=== PATIENT | female | born 2000 | race Caucasian/White ===

== ENCOUNTER 2018-08-13 00:37 | Inpatient (IN) | payer BC ==
[2018-08-13] MEDS ORDERED: Nalbuphine 10 MG/1 ML Vial IVPUSH PRN (02:02)
[2018-08-13] MEDS ORDERED: Tranexamic Acid 1,000 MG in Sodium Chloride 0.9% 100 ML IV PRN (02:02)
[2018-08-13] MEDS ORDERED: Methylergonovine 0.2 MG/1 ML Amp IM PRN (02:02)
[2018-08-13] MEDS ORDERED: Ampicillin 2 GM in Sodium Chloride 0.9% 100 ML IV ONE (02:02)
[2018-08-13] MEDS ORDERED: Water For Irrigation,Sterile 1,000 ML Container IRR PRN (02:02)
[2018-08-13] MEDS ORDERED: Sodium Chloride 0.9% 10 ML Syringe FLUSH PRN (02:02)
[2018-08-13] MEDS ORDERED: Lidocaine 1% 50 ML MDV INJECT PRN (02:02)
[2018-08-13] MEDS ORDERED: Misoprostol 200 MCG Tab PO PRN (02:02)
[2018-08-13] MEDS ORDERED: Carboprost Tromethamine 250 MCG/1 ML Amp IM PRN (02:02)
[2018-08-13] MEDS ORDERED: Sodium Chloride 0.9% 2.5 ML Syringe FLUSH PRN (02:02)
[2018-08-13] MEDS ORDERED: Oxytocin/0.9 % Sodium Chloride 30 UNIT/500 ML BAG IV SCH ×2 (02:15→11:30)
[2018-08-13] MEDS: Lactated Ringers 1,000 ML IV SCH ×3 (02:34→14:16)
[2018-08-13] MEDS: Butorphanol 1 MG/ML SDV IVPUSH PRN ×2 (05:15→07:39)
--- NOTE | 2018-08-13 05:39 | PCM.PREANE ---
Preanesthetic Assessment - Anesthesia/Transfusion/Family Hx Anesthesia History: Prior Anesthesia Without Reaction Family History of Anesthesia Reaction: No - Review of Systems General: No Symptoms Pulmonary: No Symptoms Cardiovascular: No Symptoms Gastrointestinal: No Symptoms Neurological: No Symptoms Other: Reports: None - Physical Assessment Height: 1.68 m Weight: 89.811 kg ASA Class: 1 Mental Status: Alert & Oriented x3 Dentition: Reports: Normal Dentition ROM/Head Extension: Full - Lab Values: Laboratory Last Values WBC 11.95 K/uL (4.0-11.0) H 08/13/18 02:21 RBC 4.17 M/uL (4.30-5.90) L 08/13/18 02:21 Hgb 12.6 g/dL (12.0-16.0) 08/13/18 02:21 Hct 36.2 % (36.0-46.0) 08/13/18 02:21 MCV 86.8 fL (80.0-98.0) 08/13/18 02:21 MCH 30.2 pg (27.0-32.0) 08/13/18 02:21 MCHC 34.8 g/dL (31.0-37.0) 08/13/18 02:21 RDW Std Deviation 40.7 fl (28.0-62.0) 08/13/18 02:21 RDW Coeff of Yennifer 13 % (11.0-15.0) 08/13/18 02:21 Plt Count 198 K/uL (150-400) 08/13/18 02:21 MPV 10.80 fL (7.40-12.00) 08/13/18 02:21 Nucleated RBC % 0.0 /100WBC 08/13/18 02:21 Nucleated RBCs # 0 K/uL 08/13/18 02:21 Membrane Rupture POSITIVE 08/13/18 01:00 Blood Type O POSITIVE 08/13/18 02:21 Antibody Screen NEGATIVE 08/13/18 02:21 - Allergies Allergies/Adverse Reactions: Allergies Allergy/AdvReac Type Severity Reaction Status Date / Time No Known Allergies Allergy Verified 08/13/18 01:11 - Acknowledgements Anesthesia Type Planned: Epidural Pt an Appropriate Candidate for the Planned Anesthesia: Yes Alternatives and Risks of Anesthesia Discussed w Pt/Guardian: Yes Pt/Guardian Understands and Agrees with Anesthesia Plan: Yes PreAnesthesia Questionnaire - Past Health History Medical/Surgical History: Denies Medical/Surgical History HR CLERK History: Reports: - Past Surgical History HEENT Surgical History: Reports: Oral Surgery Other HEENT Surgeries/Procedures: [place] teeth removed - SUBSTANCE USE Smoking Status *Q: Former Smoker Tobacco Use Within Last Twelve Months: No Second Hand Smoke Exposure: No Recreational Drug Use History: No - CURRENT (IN HOUSE) MEDS Current Meds: Current Medications Butorphanol Tartrate (Stadol) 1 mg IVPUSH Q1H PRN PRN Reason: Pain Last Admin: 08/13/18 05:15 Dose: 1 mg Carboprost Tromethamine (Hemabate Ds) 250 mcg IM ASDIRECTED PRN PRN Reason: Post Hemorrhage Tranexamic Acid 1,000 mg/ (Sodium Chloride) 110 mls @ 660 mls/hr IV ONETIME PRN PRN Reason: Bleeding Lactated Ringer's (Ringers, Lactated) 1,000 mls @ 150 mls/hr IV ASDIRECTED [facility] Last Admin: 08/13/18 02:34 Dose: 150 mls/hr Oxytocin/Sodium Chloride (Oxytocin 30 Unit/500 Ml-Ns) 30 unit in 500 mls @ 500 mls/hr IV TITRATE [facility] Ampicillin Sodium 1 gm/ Sodium (Chloride) 50 mls @ 100 mls/hr IV Q4H [facility] Lidocaine HCl (Xylocaine 1%) 50 ml INJECT ONETIME PRN PRN Reason: Laceration repair Methylergonovine Maleate (Methergine) 0.2 mg IM ASDIRECTED PRN PRN Reason: Post Hemorrhage Misoprostol (Cytotec) 200 mcg PO ONETIME PRN PRN Reason: Post Hemorrhage Nalbuphine HCl (Nubain) 10 mg IVPUSH Q1H PRN PRN Reason: Pain (severe 7-10) Sodium Chloride (Saline Flush) 10 ml FLUSH ASDIRECTED PRN PRN Reason: Keep Vein Open Sodium Chloride (Saline Flush) 2.5 ml FLUSH ASDIRECTED PRN PRN Reason: Keep Vein Open Sterile Water (Sterile Water For Irrigation) 1,000 ml IRR ASDIRECTED PRN PRN Reason: delivery Discontinued Medications Ampicillin Sodium 2 gm/ Sodium (Chloride) 100 mls @ 200 mls/hr IV ONETIME ONE Stop: 08/13/18 02:31 Last Admin: 08/13/18 02:34 Dose: 200 mls/hr
[2018-08-13] MEDS: Ampicillin 1 GM in Sodium Chloride 0.9% 50 ML IV SCH ×4 (06:13→18:30)
[2018-08-13] MEDS ORDERED: fentaNYL 100 MCG/2 ML SDV ONE ×2 (09:49→16:41)
[2018-08-13] MEDS ORDERED: ePHEDrine 50 MG/ML SDV ONE (10:29)
[2018-08-13] MEDS ORDERED: Terbutaline 1 MG/ML SDV SUBCUT PRN (11:30)
[2018-08-13] MEDS ORDERED: Ondansetron 4 MG/2 ML SDV IVPUSH PRN ×2 (11:34→19:46)
[2018-08-13] MEDS ORDERED: Ropivacaine HCl/PF 100 ML ONE (16:41)
[2018-08-13] MEDS ORDERED: Witch Hazel Medicated Pads 40/Jar TOP PRN (19:46)
[2018-08-13] MEDS ORDERED: oxyCODONE 5 MG Tab PO PRN (19:46)
[2018-08-13] MEDS ORDERED: Benzocaine/Menthol 20%-0.5% Spray 78 GM Cannister TOP PRN (19:46)
[2018-08-13] MEDS ORDERED: Aluminum Hydroxide/Magnesium Hydroxide/Simethicone Susp 30 ML Cup PO PRN (19:46)
[2018-08-13] MEDS ORDERED: Ibuprofen 400 MG Tab PO PRN (19:46)
[2018-08-13] MEDS ORDERED: Acetaminophen 500 MG Tab PO PRN ×2 (19:46)
[2018-08-13] MEDS ORDERED: Bisacodyl 10 MG Supp RECTAL PRN (19:46)
[2018-08-13] MEDS ORDERED: Docusate Sodium 100 MG Cap PO PRN (19:46)
[2018-08-13] MEDS ORDERED: Lanolin 100% Cream 7 GM Tube TOP PRN (19:46)
--- NOTE | 2018-08-13 20:05 | PCM.DEL ---
L & D Note - General Info Date of Service: 08/13/18 Mother's Due Date: 08/21/18 - Delivery Note Labor: Spontaneous, Augmented by Oxytocin Delivery Outcome: Livebirth Presentation: Occiput Posterior Nuchal Cord: None Anesthesia Type: Epidural Amniotic Fluid Description: Meconium Stained Episiotomy Type: None Laceration: 1st Degree, Perineal Suture type: Vicryl Suture size: 3-0 Placenta: Intact, Spontaneous Cord: 3 Vessels Resuscitation Needed: No : Bulb Syringe, Stimulated, Warmed Score 1 min: 9 Score 5 min: 9 - General Info Date of Service: 08/13/18 - Patient Data Weight - Most Recent: 89.811 kg Lab Results Last 24 Hours: Laboratory Results - last 24 hr 08/13/18 08/13/18 08/13/18 Range/Units 01:00 02:21 02:21 WBC 11.95 H (4.0-11.0) K/uL RBC 4.17 L (4.30-5.90) M/uL Hgb 12.6 (12.0-16.0) g/dL Hct 36.2 (36.0-46.0) % MCV 86.8 (80.0-98.0) fL MCH 30.2 (27.0-32.0) pg MCHC 34.8 (31.0-37.0) g/dL RDW Std Deviation 40.7 (28.0-62.0) fl RDW Coeff of Yennifer 13 (11.0-15.0) % Plt Count 198 (150-400) K/uL MPV 10.80 (7.40-12.00) fL Nucleated RBC % 0.0 /100WBC Nucleated RBCs # 0 K/uL Cord ABG pH (7.18-7.38) Cord ABG Base Excess (-10--2) Cord VBG pH (7.25-7.45) Cord VBG Base Excess (-10--2) Membrane Rupture POSITIVE Blood Type O POSITIVE Antibody Screen NEGATIVE 08/13/18 Range/Units 19:20 WBC (4.0-11.0) K/uL RBC (4.30-5.90) M/uL Hgb (12.0-16.0) g/dL Hct (36.0-46.0) % MCV (80.0-98.0) fL MCH (27.0-32.0) pg MCHC (31.0-37.0) g/dL RDW Std Deviation (28.0-62.0) fl RDW Coeff of Yennifer (11.0-15.0) % Plt Count (150-400) K/uL MPV (7.40-12.00) fL Nucleated RBC % /100WBC Nucleated RBCs # K/uL Cord ABG pH 7.160 L (7.18-7.38) Cord ABG Base Excess -7 (-10--2) Cord VBG pH 7.274 (7.25-7.45) Cord VBG Base Excess -6 (-10--2) Membrane Rupture Blood Type Antibody Screen Med Orders - Current: Current Medications Acetaminophen (Tylenol Extra Strength) 500 mg PO Q4H PRN PRN Reason: Pain Acetaminophen (Tylenol Extra Strength) 1,000 mg PO Q4H PRN PRN Reason: Pain Al Hydroxide/Mg Hydroxide (Mag-Al Plus) 30 ml PO Q8H PRN PRN Reason: Heartburn Benzocaine/Menthol (Dermoplast Pain Relief 20%-0.5% [place]) 78 gm TOP ASDIRECTED PRN PRN Reason: Perineal Comfort Measure Bisacodyl (Dulcolax) 10 mg RECTAL ONETIME PRN PRN Reason: Constipation Carboprost Tromethamine (Hemabate Ds) 250 mcg IM ASDIRECTED PRN PRN Reason: Post Hemorrhage Docusate Sodium (Colace) 100 mg PO BID PRN PRN Reason: Constipation Emollient Ointment (Lansinoh Hpa) 0 gm TOP ASDIRECTED PRN PRN Reason: Sore Nipples Tranexamic Acid 1,000 mg/ (Sodium Chloride) 110 mls @ 660 mls/hr IV ONETIME PRN PRN Reason: Bleeding Lactated Ringer's (Ringers, Lactated) 1,000 mls @ 150 mls/hr IV ASDIRECTED [facility] Last Admin: 08/13/18 14:16 Dose: 150 mls/hr Oxytocin/Sodium Chloride (Oxytocin 30 Unit/500 Ml-Ns) 30 unit in 500 mls @ 500 mls/hr IV TITRATE [facility] Oxytocin/Sodium Chloride (Oxytocin 30 Unit/500 Ml-Ns) 30 unit in 500 mls @ 2 mls/hr IV TITRATE [facility]; Protocol Last Titration: 08/13/18 18:55 Dose: 10 munits/min, 10 mls/hr Ibuprofen (Motrin) 400 mg PO Q4H PRN PRN Reason: Pain Ibuprofen (Motrin) 800 mg PO Q6H PRN PRN Reason: Pain Methylergonovine Maleate (Methergine) 0.2 mg IM ASDIRECTED PRN PRN Reason: Post Hemorrhage Ondansetron HCl (Zofran) 4 mg IVPUSH Q4H PRN PRN Reason: Nausea Last Admin: 08/13/18 18:36 Dose: 4 mg Ondansetron HCl (Zofran) 4 mg IVPUSH Q6H PRN PRN Reason: Nausea/Vomiting Oxycodone HCl (Oxycodone) 5 mg PO Q2H PRN PRN Reason: Pain Sodium Chloride (Saline Flush) 2.5 ml FLUSH ASDIRECTED PRN PRN Reason: Keep Vein Open Sterile Water (Sterile Water For Irrigation) 1,000 ml IRR ASDIRECTED PRN PRN Reason: delivery Witch Cammie (Tucks) 1 pad TOP ASDIRECTED PRN PRN Reason: comfort care Discontinued Medications Butorphanol Tartrate (Stadol) 1 mg IVPUSH Q1H PRN PRN Reason: Pain Last Admin: 08/13/18 07:39 Dose: 1 mg Ephedrine Sulfate (Ephedrine Sulfate) Confirm Administered Dose 50 mg .ROUTE .STK-MED ONE Stop: 08/13/18 10:30 Fentanyl (Sublimaze) Confirm Administered Dose 100 mcg .ROUTE .STK-MED ONE Stop: 08/13/18 09:50 Fentanyl (Sublimaze) Confirm Administered Dose 100 mcg .ROUTE .STK-MED ONE Stop: 08/13/18 16:42 Ampicillin Sodium 2 gm/ Sodium (Chloride) 100 mls @ 200 mls/hr IV ONETIME ONE Stop: 08/13/18 02:31 Last Admin: 08/13/18 02:34 Dose: 200 mls/hr Ampicillin Sodium 1 gm/ Sodium (Chloride) 50 mls @ 100 mls/hr IV Q4H [facility] Last Admin: 08/13/18 18:30 Dose: 100 mls/hr Fentanyl/Bupivacaine HCl (Oqiuqkfg-Hqlbh-Ei 2 Mcg/Ml-0.125%) Confirm Administered Dose 100 mls @ as directed EP .STK-MED ONE Stop: 08/13/18 09:51 Ropivacaine (Naropin 0.2%) Confirm Administered Dose 100 mls @ as directed .ROUTE .STK-MED ONE Stop: 08/13/18 16:42 Lidocaine HCl (Xylocaine 1%) 50 ml INJECT ONETIME PRN PRN Reason: Laceration repair Misoprostol (Cytotec) 200 mcg PO ONETIME PRN PRN Reason: Post Hemorrhage Nalbuphine HCl (Nubain) 10 mg IVPUSH Q1H PRN PRN Reason: Pain (severe 7-10) Sodium Chloride (Saline Flush) 10 ml FLUSH ASDIRECTED PRN PRN Reason: Keep Vein Open Terbutaline Sulfate (Brethine) 0.25 mg SUBCUT ASDIRECTED PRN PRN Reason: Tacysystole - Problem List & Annotations (1) Normal spontaneous vaginal delivery SNOMED Code(s): 82089526 Code(s): O80 - ENCOUNTER FOR FULL-TERM UNCOMPLICATED DELIVERY Status: Acute Current Visit: Yes - Problem List Review Problem List Initiated/Reviewed/Updated: Yes
[2018-08-14] MEDS: Ibuprofen 800 MG Tab PO PRN ×2 (03:30→18:36)
--- NOTE | 2018-08-14 08:00 | OR ---
SURGEON: Daniella Jasso M.D. DATE OF PROCEDURE: 08/13/2018 PRIMARY SURGEON: Daniella Jasso M.D. PREOPERATIVE DIAGNOSES: 1. 38-week 6 day intrauterine . 2. Active labor. POSTOPERATIVE DIAGNOSES: 1. 38-week 6 day intrauterine . 2. Active labor. PROCEDURES: Spontaneous vaginal delivery, repair of first-degree perineal laceration. FISH WORM GROWER: AMNA Chan. ANESTHESIA: Epidural. ESTIMATED BLOOD LOSS: 300 mL. COMPLICATIONS: None. FINDINGS: Viable female. score 9 at 1 minute and 9 at 5 minutes. Weight 3420 g. Spontaneous delivery, intact placenta, 3-vessel cord. DISPOSITION: The patient in LDRP and with mother. PROCEDURE IN DETAIL: Osiris Calvillo is a 18-year-old G1, P0, at 38 weeks and 6 days gestational age, who presented at 1:00 a.m. complaining of spontaneous rupture of membranes. She began leaking clear fluid at 2330 hours last night. Upon admission at 1:00 a.m. this morning, spontaneous rupture of membranes was confirmed with positive AmniSure. On admission, the cervical exam was 1 cm dilated, 30% effaced, -2 station. She was having contractions every 2 to 3 minutes. Ampicillin was initiated for group B strep positive status. She received 2 doses of Stadol for pain control and eventually requested an epidural. This was placed at 10:00 a.m. At 12:00, a cervical exam was 3 to 4 cm dilated, 90% effaced, -1 station. Pitocin was initiated at 2 milliunits per minute. She became more comfortable and shortly after 1:00 p.m., she was found to be 7 to 8 cm dilated, 90% effaced, 0 station. She continued to progress and shortly after 6:00 p.m., was found to be complete, 100% effaced, 1+ station. At that point, she had received 5 doses of ampicillin. heart tones had been category 1; however, shortly after exam at 6:00 p.m., baby became tachycardic to 180s. She began pushing and this improved. Mom remained afebrile and vital signs stable. I was called for delivery. Upon my arrival, the patient was placed in the modified dorsal lithotomy position and was prepped and draped in the usual aseptic manner. With continued pushing efforts, she was able to deliver 's head atraumatically and spontaneously, followed by anterior shoulder, posterior shoulder, and body without difficulty. Position was occiput posterior. The 's oropharynx and nares were bulb suctioned, cord was clamped x2 and cut. was handed off to her mother with attending nursing staff at her side. Cord arterial, cord venous, and cord blood sampling were obtained. Light suprapubic pressure was applied while the placenta was delivered spontaneously intact. Vigorous fundal massage was applied while 30 units of Pitocin was delivered in 500 mL of IV fluid. Upon inspection of cervix, vaginal sidewalls, and perineum, and a first- degree perineal laceration was found. This was repaired with 3-0 Vicryl in the usual fashion. Hemostasis was evident. Sponge count was correct. Needle count was correct. The patient remained in LDRP. Both mother and are doing well. Note reviewed and agree-S Romero IZQUIERDO / CYRIL /[id number] MTDFredy
--- NOTE | 2018-08-14 08:20 | PCM.PN ---
<gilbertoMarta oliva - Last Filed: 08/14/18 08:20> - General Info Date of Service: 08/14/18 Subjective Update: 18yo PPD#1 from . Feeling well this AM. baby, feels this is going well. Endorses perineal pain and uterine cramping. Lochia minimal. No nausea, tolerating diet. Urinating with no hesitancy. Ambulating without difficulty. Denies fevers, chills, dyspnea. - Review of Systems General: Reports: No Symptoms HEENT: Reports: No Symptoms Pulmonary: Reports: No Symptoms Cardiovascular: Reports: No Symptoms Gastrointestinal: Reports: No Symptoms Genitourinary: Reports: Other (Perineal pain, uterine cramping) Musculoskeletal: Reports: No Symptoms Skin: Reports: No Symptoms Neurological: Reports: No Symptoms Psychiatric: Reports: No Symptoms - Patient Data Vitals - Most Recent: Last Vital Signs Temp 98.2 F 08/14/18 04:23 Pulse 74 08/14/18 04:23 Resp 18 08/14/18 03:39 BP 111/69 08/14/18 03:39 Pulse Ox 98 08/14/18 03:39 Weight - Most Recent: 89.811 kg Lab Results Last 24 Hours: Laboratory Results - last 24 hr 08/13/18 08/14/18 Range/Units 19:20 04:49 Hgb 11.7 L (12.0-16.0) g/dL Hct 34.1 L (36.0-46.0) % Cord ABG pH 7.160 L (7.18-7.38) Cord ABG Base Excess -7 (-10--2) Cord VBG pH 7.274 (7.25-7.45) Cord VBG Base Excess -6 (-10--2) Med Orders - Current: Current Medications Acetaminophen (Tylenol Extra Strength) 500 mg PO Q4H PRN PRN Reason: Pain Acetaminophen (Tylenol Extra Strength) 1,000 mg PO Q4H PRN PRN Reason: Pain Last Admin: 08/14/18 08:05 Dose: 1,000 mg Al Hydroxide/Mg Hydroxide (Mag-Al Plus) 30 ml PO Q8H PRN PRN Reason: Heartburn Benzocaine/Menthol (Dermoplast Pain Relief 20%-0.5% [place]) 78 gm TOP ASDIRECTED PRN PRN Reason: Perineal Comfort Measure Last Admin: 08/13/18 22:34 Dose: 1 applic Bisacodyl (Dulcolax) 10 mg RECTAL ONETIME PRN PRN Reason: Constipation Carboprost Tromethamine (Hemabate Ds) 250 mcg IM ASDIRECTED PRN PRN Reason: Post Hemorrhage Docusate Sodium (Colace) 100 mg PO BID PRN PRN Reason: Constipation Emollient Ointment (Lansinoh Hpa) 0 gm TOP ASDIRECTED PRN PRN Reason: Sore Nipples Last Admin: 08/13/18 22:34 Dose: 1 applic Tranexamic Acid 1,000 mg/ (Sodium Chloride) 110 mls @ 660 mls/hr IV ONETIME PRN PRN Reason: Bleeding Lactated Ringer's (Ringers, Lactated) 1,000 mls @ 150 mls/hr IV ASDIRECTED [facility] Last Admin: 08/13/18 14:16 Dose: 150 mls/hr Oxytocin/Sodium Chloride (Oxytocin 30 Unit/500 Ml-Ns) 30 unit in 500 mls @ 500 mls/hr IV TITRATE [facility] Oxytocin/Sodium Chloride (Oxytocin 30 Unit/500 Ml-Ns) 30 unit in 500 mls @ 2 mls/hr IV TITRATE [facility]; Protocol Last Titration: 08/13/18 18:55 Dose: 10 munits/min, 10 mls/hr Ibuprofen (Motrin) 400 mg PO Q4H PRN PRN Reason: Pain Ibuprofen (Motrin) 800 mg PO Q6H PRN PRN Reason: Pain Last Admin: 08/14/18 03:30 Dose: 800 mg Methylergonovine Maleate (Methergine) 0.2 mg IM ASDIRECTED PRN PRN Reason: Post Hemorrhage Ondansetron HCl (Zofran) 4 mg IVPUSH Q4H PRN PRN Reason: Nausea Last Admin: 08/13/18 18:36 Dose: 4 mg Ondansetron HCl (Zofran) 4 mg IVPUSH Q6H PRN PRN Reason: Nausea/Vomiting Oxycodone HCl (Oxycodone) 5 mg PO Q2H PRN PRN Reason: Pain Sodium Chloride (Saline Flush) 2.5 ml FLUSH ASDIRECTED PRN PRN Reason: Keep Vein Open Sterile Water (Sterile Water For Irrigation) 1,000 ml IRR ASDIRECTED PRN PRN Reason: delivery Luana Bonds (Tucks) 1 pad TOP ASDIRECTED PRN PRN Reason: comfort care Last Admin: 08/13/18 22:33 Dose: 1 applic Discontinued Medications Butorphanol Tartrate (Stadol) 1 mg IVPUSH Q1H PRN PRN Reason: Pain Last Admin: 08/13/18 07:39 Dose: 1 mg Ephedrine Sulfate (Ephedrine Sulfate) Confirm Administered Dose 50 mg .ROUTE .STK-MED ONE Stop: 08/13/18 10:30 Fentanyl (Sublimaze) Confirm Administered Dose 100 mcg .ROUTE .STK-MED ONE Stop: 08/13/18 09:50 Fentanyl (Sublimaze) Confirm Administered Dose 100 mcg .ROUTE .STK-MED ONE Stop: 08/13/18 16:42 Ampicillin Sodium 2 gm/ Sodium (Chloride) 100 mls @ 200 mls/hr IV ONETIME ONE Stop: 08/13/18 02:31 Last Admin: 08/13/18 02:34 Dose: 200 mls/hr Ampicillin Sodium 1 gm/ Sodium (Chloride) 50 mls @ 100 mls/hr IV Q4H [facility] Last Admin: 08/13/18 18:30 Dose: 100 mls/hr Fentanyl/Bupivacaine HCl (Vhohgysx-Cwyjf-Ow 2 Mcg/Ml-0.125%) Confirm Administered Dose 100 mls @ as directed EP .STK-MED ONE Stop: 08/13/18 09:51 Ropivacaine (Naropin 0.2%) Confirm Administered Dose 100 mls @ as directed .ROUTE .STK-MED ONE Stop: 08/13/18 16:42 Lidocaine HCl (Xylocaine 1%) 50 ml INJECT ONETIME PRN PRN Reason: Laceration repair Misoprostol (Cytotec) 200 mcg PO ONETIME PRN PRN Reason: Post Hemorrhage Nalbuphine HCl (Nubain) 10 mg IVPUSH Q1H PRN PRN Reason: Pain (severe 7-10) Sodium Chloride (Saline Flush) 10 ml FLUSH ASDIRECTED PRN PRN Reason: Keep Vein Open Terbutaline Sulfate (Brethine) 0.25 mg SUBCUT ASDIRECTED PRN PRN Reason: Tacysystole - Exam General: Alert, Oriented Lungs: Clear to Auscultation, Normal Respiratory Effort Cardiovascular: Regular Rate, Regular Rhythm, No Murmurs GI/Abdominal Exam: Soft, Non-Tender (Female) Exam: No: Uterine Tenderness Extremities: Normal Inspection, Other (No calf tenderness) Peripheral Pulses: 2+: Posterior Tibial (L), Posterior Tibial (R), Dorsalis Pedis (L), Dorsalis Pedis (R) Skin: Warm, Dry Neurological: No New Focal Deficit Psy/Mental Status: Normal Affect, Normal Mood - Problem List & Annotations (1) Normal spontaneous vaginal delivery SNOMED Code(s): 81586849 Code(s): O80 - ENCOUNTER FOR FULL-TERM UNCOMPLICATED DELIVERY Status: Acute Current Visit: Yes - Problem List Review Problem List Initiated/Reviewed/Updated: Yes - Assessment Assessment:: 18yo who is PPD#1 from , repair of 1st degree perineal laceration. Clinically stable, VS and labs reassuring. - Plan Plan:: Continue routine cares. Encouraged ambulation. Anticipate discharge home later today. <Daniella Jasso - Last Filed: 08/14/18 08:27> - Patient Data Vitals - Most Recent: Last Vital Signs Temp 36.8 C 08/14/18 04:23 Pulse 74 08/14/18 04:23 Resp 18 08/14/18 03:39 BP 111/69 08/14/18 03:39 Pulse Ox 98 08/14/18 03:39 Lab Results Last 24 Hours: Laboratory Results - last 24 hr 08/13/18 08/14/18 Range/Units 19:20 04:49 Hgb 11.7 L (12.0-16.0) g/dL Hct 34.1 L (36.0-46.0) % Cord ABG pH 7.160 L (7.18-7.38) Cord ABG Base Excess -7 (-10--2) Cord VBG pH 7.274 (7.25-7.45) Cord VBG Base Excess -6 (-10--2) Med Orders - Current: Current Medications Acetaminophen (Tylenol Extra Strength) 500 mg PO Q4H PRN PRN Reason: Pain Acetaminophen (Tylenol Extra Strength) 1,000 mg PO Q4H PRN PRN Reason: Pain Last Admin: 08/14/18 08:05 Dose: 1,000 mg Al Hydroxide/Mg Hydroxide (Mag-Al Plus) 30 ml PO Q8H PRN PRN Reason: Heartburn Benzocaine/Menthol (Dermoplast Pain Relief 20%-0.5% [place]) 78 gm TOP ASDIRECTED PRN PRN Reason: Perineal Comfort Measure Last Admin: 08/13/18 22:34 Dose: 1 applic Bisacodyl (Dulcolax) 10 mg RECTAL ONETIME PRN PRN Reason: Constipation Carboprost Tromethamine (Hemabate Ds) 250 mcg IM ASDIRECTED PRN PRN Reason: Post Hemorrhage Docusate Sodium (Colace) 100 mg PO BID PRN PRN Reason: Constipation Emollient Ointment (Lansinoh Hpa) 0 gm TOP ASDIRECTED PRN PRN Reason: Sore Nipples Last Admin: 08/13/18 22:34 Dose: 1 applic Tranexamic Acid 1,000 mg/ (Sodium Chloride) 110 mls @ 660 mls/hr IV ONETIME PRN PRN Reason: Bleeding Lactated Ringer's (Ringers, Lactated) 1,000 mls @ 150 mls/hr IV ASDIRECTED [facility] Last Admin: 08/13/18 14:16 Dose: 150 mls/hr Oxytocin/Sodium Chloride (Oxytocin 30 Unit/500 Ml-Ns) 30 unit in 500 mls @ 500 mls/hr IV TITRATE [facility] Oxytocin/Sodium Chloride (Oxytocin 30 Unit/500 Ml-Ns) 30 unit in 500 mls @ 2 mls/hr IV TITRATE [facility]; Protocol Last Titration: 08/13/18 18:55 Dose: 10 munits/min, 10 mls/hr Ibuprofen (Motrin) 400 mg PO Q4H PRN PRN Reason: Pain Ibuprofen (Motrin) 800 mg PO Q6H PRN PRN Reason: Pain Last Admin: 08/14/18 03:30 Dose: 800 mg Methylergonovine Maleate (Methergine) 0.2 mg IM ASDIRECTED PRN PRN Reason: Post Hemorrhage Ondansetron HCl (Zofran) 4 mg IVPUSH Q4H PRN PRN Reason: Nausea Last Admin: 08/13/18 18:36 Dose: 4 mg Ondansetron HCl (Zofran) 4 mg IVPUSH Q6H PRN PRN Reason: Nausea/Vomiting Oxycodone HCl (Oxycodone) 5 mg PO Q2H PRN PRN Reason: Pain Sodium Chloride (Saline Flush) 2.5 ml FLUSH ASDIRECTED PRN PRN Reason: Keep Vein Open Sterile Water (Sterile Water For Irrigation) 1,000 ml IRR ASDIRECTED PRN PRN Reason: delivery Luana Bonds (Tucks) 1 pad TOP ASDIRECTED PRN PRN Reason: comfort care Last Admin: 08/13/18 22:33 Dose: 1 applic Discontinued Medications Butorphanol Tartrate (Stadol) 1 mg IVPUSH Q1H PRN PRN Reason: Pain Last Admin: 08/13/18 07:39 Dose: 1 mg Ephedrine Sulfate (Ephedrine Sulfate) Confirm Administered Dose 50 mg .ROUTE .STK-MED ONE Stop: 08/13/18 10:30 Fentanyl (Sublimaze) Confirm Administered Dose 100 mcg .ROUTE .STK-MED ONE Stop: 08/13/18 09:50 Fentanyl (Sublimaze) Confirm Administered Dose 100 mcg .ROUTE .STK-MED ONE Stop: 08/13/18 16:42 Ampicillin Sodium 2 gm/ Sodium (Chloride) 100 mls @ 200 mls/hr IV ONETIME ONE Stop: 08/13/18 02:31 Last Admin: 08/13/18 02:34 Dose: 200 mls/hr Ampicillin Sodium 1 gm/ Sodium (Chloride) 50 mls @ 100 mls/hr IV Q4H [facility] Last Admin: 08/13/18 18:30 Dose: 100 mls/hr Fentanyl/Bupivacaine HCl (Chqnplvz-Wwueb-Mf 2 Mcg/Ml-0.125%) Confirm Administered Dose 100 mls @ as directed EP .STK-MED ONE Stop: 08/13/18 09:51 Ropivacaine (Naropin 0.2%) Confirm Administered Dose 100 mls @ as directed .ROUTE .STK-MED ONE Stop: 08/13/18 16:42 Lidocaine HCl (Xylocaine 1%) 50 ml INJECT ONETIME PRN PRN Reason: Laceration repair Misoprostol (Cytotec) 200 mcg PO ONETIME PRN PRN Reason: Post Hemorrhage Nalbuphine HCl (Nubain) 10 mg IVPUSH Q1H PRN PRN Reason: Pain (severe 7-10) Sodium Chloride (Saline Flush) 10 ml FLUSH ASDIRECTED PRN PRN Reason: Keep Vein Open Terbutaline Sulfate (Brethine) 0.25 mg SUBCUT ASDIRECTED PRN PRN Reason: Tacysystole - My Orders Last 24 Hours: My Active Orders 08/13/18 11:30 Oxytocin/0.9 % Sodium Chloride [Oxytocin 30 Unit/500 ML-NS] 30 unit in 500 ml IV TITRATE 08/13/18 11:31 Oxygen Therapy [RC] ASDIRECTED 08/13/18 11:34 Ondansetron [Zofran] 4 mg IVPUSH Q4H PRN 08/13/18 11:45 Medication Administration Instruction [OM.PC] Q3H 08/13/18 19:46 Patient Status [ADT] Routine May Shower [RC] ASDIRECTED Up ad Sonya [RC] ASDIRECTED Vital Signs [RC] PER UNIT ROUTINE Acetaminophen [Tylenol Extra Strength] 1,000 mg PO Q4H PRN Acetaminophen [Tylenol Extra Strength] 500 mg PO Q4H PRN Alum Hydrox/Mag Hydrox/Simeth [Mag-Al Plus] 30 ml PO Q8H PRN Benzocaine/Menthol [Dermoplast Pain Relief 20%-0.5% [place]] 78 gm TOP ASDIRECTED PRN Bisacodyl [Dulcolax] 10 mg RECTAL ONETIME PRN Docusate Sodium [Colace] 100 mg PO BID PRN Ibuprofen [Motrin] 400 mg PO Q4H PRN Ibuprofen [Motrin] 800 mg PO Q6H PRN Lanolin [Lansinoh HPA] See Dose Instructions TOP ASDIRECTED PRN Ondansetron [Zofran] 4 mg IVPUSH Q6H PRN Witch Cammie [Tucks] 1 pad TOP ASDIRECTED PRN oxyCODONE 5 mg PO Q2H PRN Assess Lochia [WOMSER] Per Unit Routine Assess Uterine Involution [WOMSER] Per Unit Routine Peripheral IV Discontinue [OM.PC] Routine 08/13/18 19:47 Ice Therapy [OM.PC] Per Unit Routine Perineal Care [OM.PC] Per Unit Routine Sitz Bath [OM.PC] Per Unit Routine 08/13/18 Dinner Regular Diet [DIET] - Plan Plan:: Patient seen and examined, agree with above. Patient very much would like to go home this evening. If remains stable and feeding goes well, allow discharge to home this evening. Resuming citalopram 20 mg daily. Infection and bleeding warnings reviewed. PP depression warnings reviewed. FOllow up at [facility] 6 weeks. Discharge instructions reviewed.
--- NOTE | 2018-08-14 08:45 | PCM48HPAN ---
Post Anesthesia Note - EVALUATION WITHIN 48HRS OF ANESTHETIC Vital Signs in Normal Range: Yes Patient Participated in Evaluation: Yes Respiratory Function Stable: Yes Airway Patent: Yes Cardiovascular Function Stable: Yes Hydration Status Stable: Yes Pain Control Satisfactory: Yes Nausea and Vomiting Control Satisfactory: Yes Mental Status Recovered: Yes Pulse Rate: 74 SaO2: 98 Resp Rate: 18 Temperature: 98.2 F Blood Pressure: 111/69
--- NOTE | 2018-08-14 10:22 | PCM.SN ---
- Free Text/Narrative Note: Epidural bag changed at [id number] 08/13/18 due to previous bag running empty. 100ml bag of 0.2% Naropin with 100mcg of Fentanyl hung and infusing via epidural pump.Pt. comfortable at that time with epidural infusing as well as she is progressing nicely. Anticipate vaginal delivery of .
== END 2018-08-14 21:27 | disposition home or self-care (01) | DRG 560 ==
LOC: MW.OBCHECK 00:37 → MW.OB 00:41 → MW.OBCHECK 02:03 → MW.OB 02:03 → OBSVTOIN 19:20 → MW.OB 23:29
PROVIDERS: ADMIT Obstetrics & Gynecology; ATTEND Obstetrics & Gynecology
PROC: 10E0XZZ Delivery of Products of Conception, External Approach (ICD-10-PCS; principal; 2018-08-13)
PROC: 0HQ9XZZ Repair Perineum Skin, External Approach (ICD-10-PCS; 2018-08-13)
PROC: 00HU33Z Insertion of Infusion Device into Spinal Canal, Percutaneous Approach (ICD-10-PCS; 2018-08-13)
DX: O42.02 Full-term premature rupture of membranes, onset of labor within 24 hours of rupture (principal); O70.0 First degree perineal laceration during delivery; O99.824 Streptococcus B carrier state complicating childbirth; Z3A.38 38 weeks gestation of pregnancy; Z37.0 Single live birth
CPT/HCPCS: 36415; 51702; 59025; 59409; 82803; 84112; 85014; 85018; 85027; 86850; 86900; 86901; A9270-GY; J0290; J0595; J2405; J2590; J7030; J7050; J7120